=== PATIENT | male | born 1955 | race Caucasian/White ===

== ENCOUNTER 2020-01-15 00:37 | Day surgery (SDC) | payer OTHER, SELFPAY ==
[2020-01-09 14:07] VITALS: BMI 24.5
[2020-01-15 07:48] VITALS: BP 121/78; PULSE 65; RESP 16; TEMP 36.1; O2SAT 100; BMI 25.4
--- NOTE | 2020-01-15 08:06 | P.PNAN_ITS ---
Anes - Initial Pre Proc Eval Procedure: Operation Date: 01/15/20 08:30 Proposed Procedures p Screening Colonoscopy - Ambrocio Pena MD Date/Time: 01/15/20 08:06 Surgeon: Ambrocio Pena MD Pre Op Diagnosis: neoplasm screening Patient Data Age: 64 Gender: M Height: 5 ft 11 in Weight: 82.6 kg Last Vital Signs Temp 96.9 F L 01/15/20 07:48 Pulse 65 01/15/20 07:48 Resp 16 01/15/20 07:48 BP 121/78 01/15/20 07:48 Pulse Ox 100 01/15/20 07:48 Allergies Allergy/AdvReac Type Severity Reaction Status Date / Time No Known Allergies Allergy Verified 01/15/20 07:47 Home Medications Medication Instructions Recorded Confirmed Type tamsulosin 0.4 mg capsule 0.4 mg PO DAILY 10/14/19 01/15/20 History Patient hx anesthesia problems: none Family hx anesthesia problems: none [facility] Past Medical History Medical History (Updated 10/14/19 @ 22:07 by Mackenzie Xie MD) FH: CAD (coronary artery disease) FH: diabetes mellitus Lumbar radiculopathy Prostatic hypertrophy Sensory neuropathy Social History Social History Smoking status: Never smoker Second hand tobacco smoke exposure: No Alcohol intake: never Anes - Eval Final PreProcedure Day of Procedure 01/15/20 08:06 Patient weight: normal Heart: regular rate and rhythm Lungs: clear to auscultation Airway: Mallampati scale class II Neurological: alert and oriented Last oral intake: >/= 8 hours ASA classification: II Emergent: no Anesthetic plan: proceed Anesthesia type and monitoring: general GIVS and standard monitoring Informed Consent: The patient's anesthetic plan and its attendant risks and benefits were discussed with the patient/family/POA. Questions were solicited and answers provided to the satisfaction of the patient/family/POA.
[2020-01-15] MEDS: LACTATED RINGERS 1,000 ML 150 ML IV CONT (08:09)
--- NOTE | 2020-01-15 08:37 | WPDGICN ---
Assessment and Plan Additional Plan This is a 64-year-old white male patient seen in evaluation at the request of Dr. Mackenzie Xie. Patient's last colonoscopy 5 years ago he was found to have an adenomatous colon polyp. His current weight appetite bowel movements are normal. He denies any abdominal pain. He denies blood in his stools. Family history is significant his mother had colon cancer. Past medical history noncontributory. Current medications include tamsulosin. No known medical allergies. Physical exam reveals vital signs stable. HEENT exam unremarkable. Lungs are clear to auscultation and percussion. Heart is without murmur or extra sounds. Abdominal exam bowel sounds are present soft nontender with no hepatosplenomegaly. Digital external rectal exam normal. Impression 1. Personal history of colon polyps. 2. Family history of colon cancer in mother. Plan is for colonoscopy now and at 5 year intervals in the future. GI Consult Note Consult date/time: 01/15/20 08:37 HPI: Manjeet Gutierrez is a 64 year old male [facility]LY [facility] Past Medical History Medical History (Updated 10/14/19 @ 22:07 by Mackenzie Xie MD) FH: CAD (coronary artery disease) FH: diabetes mellitus Lumbar radiculopathy Prostatic hypertrophy Sensory neuropathy Social History Social History Smoking status: Never smoker Second hand tobacco smoke exposure: No Alcohol intake: never Meds Home Medications and Allergies Home Medications Medication Instructions Recorded Confirmed Type tamsulosin 0.4 mg capsule 0.4 mg PO DAILY 10/14/19 01/15/20 History Allergies Allergy/AdvReac Type Severity Reaction Status Date / Time No Known Allergies Allergy Verified 01/15/20 07:47 Vital Signs Vital Signs - 24 hr 01/15/20 07:48 Temperature 36.1 C L Pulse Rate 65 Respiratory Rate 16 Blood Pressure 121/78 Pulse Oximetry 100
[2020-01-15] MEDS: SIMETHICONE ORAL SUSPENSION 20 MG/0.3 ML 30 ML BOTTLE 0.6 ML IRRIGATION (08:45)
[2020-01-15 08:56] VITALS: BP 96/66; PULSE 77; RESP 19; O2SAT 95
[2020-01-15 09:06] VITALS: BP 101/68; PULSE 68; RESP 19; O2SAT 96
== END 2020-01-15 09:45 | disposition home or self-care (01) ==
PROVIDERS: PCP Family Medicine; Visit Provider Internal Medicine Gastroenterology
PROC: 0DJD8ZZ Inspection of Lower Intestinal Tract, Via Natural or Artificial Opening Endoscopic (ICD-10-PCS; CPT 45378; principal; 2020-01-15 08:30)
DX: Z12.11 Encounter for screening for malignant neoplasm of colon (principal); K57.30 Diverticulosis of large intestine without perforation or abscess without bleeding; K64.8 Other hemorrhoids; Z86.010 Personal history of colon polyps; Z80.0 Family history of malignant neoplasm of digestive organs
CPT/HCPCS: 45378; J2704; J7120

== ENCOUNTER 2024-01-09 09:36 | Outpatient (CLI) | payer MEDICARE, SELFPAY ==
--- NOTE | 2024-01-09 10:26 | ECG_ITS ---
Measurements Intervals [place] Rate: 57 P: 72 FL: 185 QRS: -26 QRSD: 98 T: 39 QT: 388 QTc: 379 Interpretive Statements SINUS BRADYCARDIA POSSIBLE LEFT ATRIAL ENLARGEMENT [-0.1mV P WAVE IN V1/V2] BORDERLINE LEFT AXIS DEVIATION [QRS AXIS < -20] BORDERLINE ECG NO PREVIOUS ECG AVAILABLE FOR COMPARISON Electronically Signed On 01-09-2024 18:23:35 [employer] by Kb Whitt M.D.
[2024-01-09 11:02] LABS: Basophils Absolute Auto 0.1 K/mm3 (0.0-0.1); Basophils Percent Auto 1.1 % (0.2-1.2); Eosinophils Absolute Auto 0.3 K/mm3 (0-0.3); Eosinophils Percent Auto 5.2 % (0-4.4); Hematocrit 46.5 % (42.0-52.0); Hemoglobin 15.5 g/dL (14.0-18.0); Immature Granulocyte Absolute 0.03 K/mm3 (0.00-0.031); Immature Granulocyte Percent A 0.5 % (0-0.5); Lymphocytes Absolute Auto 2.03 K/mm3 (0.9-3.2); Lymphocytes Percent Auto 31.7 % (18.3-44.2); Mean Corpuscular HGB Conc 33.3 g/dl (32-36); Mean Corpuscular Hemoglobin 31.5 pg (26-34); Mean Corpuscular Volume 94.5 fl (80-100); Mean Platelet Volume 11.1 fl (7.4-10.4); Monocytes Absolute Auto 0.7 K/mm3 (0.1-0.6); Monocytes Percent Auto 10.8 % (2.6-8.5); Neutrophils Absolute Auto 3.3 K/mm3 (1.3-6.7); Neutrophils Percent Auto 50.7 % (45.5-73.1); Platelet Count Result 214 k/mm3 (150-375); Red Blood Count 4.92 M/mm3 (4.6-6.20); Red Cell Distribution Width 13.5 % (11.5-14.5); White Blood Count 6.4 K/mm3 (4.5-10.0)
[2024-01-09 11:09] LABS: Alanine Aminotransferase 31 U/L (6-50); Albumin Level 4.3 g/dL (3.5-5.1); Alkaline Phosphatase 104 U/L (38-126); Anion Gap 5 mmol/L (8-16); Aspartate Amino Transferase 37 U/L (17-59); Bilirubin,Total 0.7 mg/dL (0.2-1.3); Blood Urea Nitrogen 12 mg/dL (9-20); Calcium 9.5 mg/dL (8.4-10.2); Carbon Dioxide 25 mmol/L (22-30); Chloride 107 mmol/L (98-107); Estimated Glomerular Filt Rate > 60; Glucose 109 mg/dL (65-110); Potassium 4.4 mmol/L (3.4-5.0); Sodium 137 mmol/L (137-145)
[2024-01-09 11:15] LABS: INR 0.9; Prothrombin Time 12.5 Seconds (11.1-14.7)
[2024-01-09 11:16] LABS: Partial Thromboplastin Time 27.8 SECONDS (22.3-36.8)
== END 2024-01-09 09:37 | disposition home or self-care (01) ==
LOC: ANHSURGERY 09:46
PROVIDERS: PCP Family Medicine; Visit Provider Urology
DX: Z01.818 Encounter for other preprocedural examination (principal); C61 Malignant neoplasm of prostate; R93.1 Abnormal findings on diagnostic imaging of heart and coronary circulation
CPT/HCPCS: 36415; 80053; 85025; 85610; 85730; 86850; 86900; 86901; 87086; 93005

== ENCOUNTER 2024-01-17 01:07 | Day surgery (SDC) | payer MEDICARE, SELFPAY ==
[2024-01-09 09:46] VITALS: BP 142/80; PULSE 66; RESP 20; TEMP 36.9; O2SAT 97; BMI 28.1
--- NOTE | 2024-01-09 09:46 | PC.NURSE ---
PRE-OP INSTRUCTIONS, PLEASE READ CAREFULLY Report to the Outpatient Waiting Room, entrance under the green pavilion located off [facility], at time _0600_ on date _01/17/24_. Planned Procedure Time: _0730_. PACK A SMALL OVERNIGHT BAG AND LEAVE IN THE CAR Time changes happen often and if your time is changed the preop area will call you the afternoon before. - You and your visitor will be asked to self-screen and do not enter if you have any COVID symptoms. - A mask is optional within the hospital at this time. -VISITING HOURS 8AM-8PM Patients may have clear liquids (water, carbonated beverages, clear teas, apple juice) until 3 hours prior to surgery (0430 AM) with a maximum of 20 ounces. - No food from midnight until time of surgery Take the following medications with a SIP of water the morning of surgery: _NONE_ DO NOT STOP ANY OF YOUR OTHER PRESCRIPTION MEDICATIONS PRIOR TO SURGERY ?EXCEPT THE FOLLOWING Medications to discontinue per DR. ESCALONA - _MULTIVITAMIN & SUPPLEMENTS 7 DAYS PRIOR TO SURGERY, Date to take last dose 01/08/24 (PER PATIENT)_ Please no make-up, nail romansh, hairspray, perfume, deodorant, or body powder the day of surgery. No jewelry (including any body piercings) or valuables the day of surgery, leave them at home. Please take a shower or bath the night before, or the morning of, surgery with an antibacterial soap. Wear comfortable, loose fitting clothing. - Jewelry must be removed prior to entering the operating room. Rings and piercings that are not removed may be cut off. - The hospital will not accept responsibility for valuables. - Please leave all valuables, including medications, at home the day of surgery. If you are going home after surgery, a licensed oil transport driver must drive you home. - NO public transportation without another adult if you receive anesthesia. - We recommend that an adult stay with you for 24 hours following discharge. - We also recommend that you do not drive, make important decision, drink alcoholic beverages, or take any drugs that were not prescribed by your health care provider for at least 24 hours after your discharge time. For Pediatric surgeries, we recommend two adults accompany the child home. Follow any additional instructions given to you from your surgeon. If you or anyone in your household have experienced Covid symptoms in the past week, please notify your surgeon or the nurse liaison at the phone number below for possible testing. Instructions given to _PATIENT_and asked if any additional questions and then verbalized understanding. Patient advised to call surgeon office or pre surgery nurse liaison [phone] if any additional questions.
[2024-01-17] VITALS (10 sets, daily range): BP systolic 112–162; BP diastolic 75–98; PULSE 54–79; RESP 14–20; TEMP 36.2–36.4; O2SAT 93–100; BMI 27.3
[2024-01-17] MEDS: LACTATED RINGERS 1,000 ML 30 ML IV CONT ×3 (06:30→11:15)
--- NOTE | 2024-01-17 06:39 | WPDHPUPDATE1 ---
History and Physical Update Update Date/Time: 01/17/24 06:39 History and Physical has been reviewed, including an updated exam of the patient. There are NO changes in the patient's condition. Risks, benefits, and alternatives have been discussed and questions answered. Patient agrees to proceed with procedure. Proceed with robotic assist nerve sparing prostatectomy with possible plnd
--- NOTE | 2024-01-17 07:16 | WPDANESEPPF ---
Anes - Initial Pre Proc Eval Procedure: Operation Date: 01/17/24 07:30 Proposed Procedures p Robotic Assisted Nerve Sparing Prostatectomy with Possible Pelvic Lymph Node Dissection - Joo Mckeon MD Date/Time: 01/17/24 07:16 Surgeon: Joo Mckeon MD Pre Op Diagnosis: prostate CA Patient Data Age: 68 Gender: M Height: 1.8 m Weight: 88.8 kg Last Vital Signs Temp 98.4 F 01/09/24 09:46 Pulse 66 01/09/24 09:46 Resp 20 01/09/24 09:46 BP 142/80 H 01/09/24 09:46 Pulse Ox 97 01/09/24 09:46 O2 Del Method Room Air 01/09/24 09:46 Allergies Allergy/AdvReac Type Severity Reaction Status Date / Time No Known Allergies Allergy Verified 01/17/24 06:15 Home Medications Medication Instructions Recorded Confirmed Type tamsulosin 0.4 mg capsule (Flomax) 0.4 mg PO DAILY 10/14/19 01/09/24 History omega 3-nht-hbo-fish oil 1,200 mg 1 cap PO DAILY 03/21/23 01/17/24 History (144 mg-216 mg) capsule (Fish Oil) saw palmetto 450 mg capsule 450 mg PO BID 03/21/23 01/17/24 History multivitamin 1 tablet PO DAILY 03/22/23 01/17/24 History Patient hx anesthesia problems: none Family hx anesthesia problems: none Results Review: All pre-operative results and documents have been reviewed as part of the pre-operative evaluation. FORMERLY [facility] Past Medical History Medical History (Updated 05/05/23 @ 21:30 by Mackenzie Xie MD) Erectile dysfunction FH: CAD (coronary artery disease) FH: diabetes mellitus Lumbar radiculopathy Normal colonoscopy (~2019) Prostatic hypertrophy Sensory neuropathy Surgical History Surgical History History of hernia repair Family History Family History Sibling Family history of arthritis Family history of diabetes mellitus in first degree relative Diabetes mellitus Father Acute myocardial infarction Hypertension Mother Carcinoma of colon Grandparent Diabetes mellitus Other Family history of malignant neoplasm Social History Social History (Updated 05/05/23 @ 09:06 by AYANNA Moon Smoking status: Never smoker Second hand tobacco smoke exposure: No Alcohol intake: current Drinks per week: 12 Alcohol use details: BEER Substance use: never Substance use type: does not use Lack of Transportation: No Lack of Food: Never True Current Housing: I Have Housing Concerned About Future Housing: No Difficulty Paying Gas/Electric Bills: No Difficulty Paying for Meds: No Currently Unemployed: No Education: Trade/Vocational Certificate Difficulty w/ Childcare or Family Care: No Living arrangements: with family Occupation/Education: retired Gender identity (if verbalized by the patient): Male Sexual Orientation (if Verbalized by the Patient): Straight or Heterosexual Spiritual care concerns: No Agree to blood products: Yes Anes - Eval Final PreProcedure Day of Procedure 01/17/24 07:16 Patient weight: normal Heart: regular rate and rhythm Lungs: clear to auscultation Airway: Mallampati scale class II Neurological: alert and oriented Last oral intake: >/= 8 hours ASA classification: III Emergent: no Anesthetic plan: proceed Anesthesia type and monitoring: general ETT and standard monitoring Results Review: All pre-operative results and documents have been reviewed as part of the pre-operative evaluation. Informed Consent: The patient's anesthetic plan and its attendant risks and benefits were discussed with the patient/family/POA. Questions were solicited and answers provided to the satisfaction of the patient/family/POA.
[2024-01-17] MEDS: ceFAZolin 2 GM/D5W 50 ML 2 GM/50 ML BAG IVPB (07:26)
[2024-01-17] MEDS: BUPivacaine HCL 0.5% PF 30 ML VIAL INFILTRATE (08:10)
--- NOTE | 2024-01-17 09:33 | W.PM.PROC2 ---
Procedure Note - Detailed Date of Procedure 01/17/24 Pre-op Diagnosis prostate CA Post-op Diagnosis Same Procedure Performed Attempted robotic assisted nerve-sparing prostatectomy with extensive adhesiolysis Surgeon Joo Mckeon MD Anesthesia General Description of Procedure Patient was taken the operative suite correctly identified. Once anesthesia was obtained was placed in low-lying dorsal lithotomy position and prepped draped usual sterile fashion. Eighteen Portuguese Zepeda was inserted with 20 cc in the balloon. Supraumbilical incision was then made carried down to the rectus fascia. Veress needle was inserted and the abdomen was insufflated 15 mmHg pressure. Camera port was placed under direct vision. Working ports were then placed in appropriate locations. Placed was placed in steep Trendelenburg and the robot was docked. Attention was then given to the console. Patient was noted to have an extensive amount of adhesions of his colon to the cul-de-sac as well as to the left lateral umbilical ligament. This was carefully taken down. It was then noted that he had a very lax abdominal wall anteriorly which sag into the cul-de-sac posteriorly. It was a very deep cul-de-sac. I made the standard incision about 1 cm above the rectal wall. I was never able to adequately identify the vas or seminal vesicles. It was very vascular in this area for some reason. I then attempted to identify the vas coming from the inguinal canals. This also was unsuccessful in order to trace it down. Given that he had only a Cheryl 6 carcinoma with a very low prolaris risk factor, I made the decision to terminate the procedure. The robot was undocked. Midline incision was closed using an 0 Vicryl suture. Subcuticular stitches were placed. Patient was taken recovery stable condition. The Zepeda catheter will be removed in the recovery room for a voiding trial. This completes dictation. Please send a copy of this op note to my office Estimated Blood Loss 25 Drains No Packing No Pathology None sent Complications No immediate complications Condition Stable Disposition PACU
[2024-01-17] MEDS: fentaNYL CITRATE INJ (*CRX) 100 MCG/2 ML VIAL 25 MCG IV PUSH ×4 (10:05→10:15)
[2024-01-17] MEDS: oxyCODONE HCL (*CRX) 5 MG TAB IR PO (11:08)
--- NOTE | 2024-01-17 11:21 | SUR.PHASEII ---
1130 - pt voided, then bladder scanned with 0 mls in bladder
--- NOTE | 2024-01-17 12:28 | SUR.PHASEII ---
126 - dr. whitehead in room speaking with patient and patient's
== END 2024-01-17 12:45 | disposition home or self-care (01) ==
PROVIDERS: PCP Family Medicine; Visit Provider Urology
PROC: 0VT04ZZ Resection of Prostate, Percutaneous Endoscopic Approach (ICD-10-PCS; CPT 55867; principal; 2024-01-17 07:30)
DX: C61 Malignant neoplasm of prostate (principal); Z53.8 Procedure and treatment not carried out for other reasons
CPT/HCPCS: 55866; S2900; A9270; J0690; J1100; J1170; J2250; J2371; J2405; J2704; J3010; J7030; J7120

== ENCOUNTER 2025-08-23 01:44 | Day surgery (SDC) | payer MEDICARE, SELFPAY ==
[2025-08-14 15:05] VITALS: BMI 25.7
--- OUTSIDE RECORDS SUMMARY | 2025-08-23 01:48 | XMS_ITS | Clinical Summary ---
Author Organization [facility] Address [address] [place] [id number] Care Team Providers Care Marketing Assistant Retail Division Name Role Phone Mackenzie Xie MD Primary Care Provider Social History Tobacco Use Types Packs/Day Years Used Date Smoking Tobacco: Never Assessed Sex and Gender Information Value Date Recorded Sex Assigned at Not on file Legal Sex Male 10:45 AM [employer] Gender Identity Not on file Sexual Orientation Not on file Plan of Treatment Health Maintenance Due Date Last Done Comments Colorectal Cancer Screening Colonoscopy (10 Years) 1955 Hepatitis C 1973 DTaP, Tdap and Td Vaccines ( 1 - Tdap) 1974 Pneumococcal Vaccine: 50+ Ye ars (1 of 1 - PCV) 2005 Zoster Vaccines (1 of 2) 2005 Annual Medicare Wellness Visit 2020 COVID-19 Vaccine (1 - 2023-2 5 season) 2025 Influenza Adult (#1) 2025 RSV Immunization or 60+ Years (1 - 1-dose 75+ series) 2030 Meningococcal B Vaccine Aged Out No l onger eligible based on patient's age to complete this topic Meningococcal Vaccine Aged Out No sal kendy eligible based on patient's age to complete this topic RSV Immunizations Under 20 Months Aged Out No longer eligible based on patient's age to complete this topic [place] [address] [place] [id number] MEDICARE [facility] Care Teams Marketing Assistant Retail Division Relationship Specialty Start Date End Date Mackenzie Xie MD PCP - General FAMILY PRACTICE 01/14/21
[2025-08-23 08:14] VITALS: BP 126/86; PULSE 64; RESP 18; TEMP 36.1; O2SAT 99; BMI 26.4
[2025-08-23] MEDS: LACTATED RINGERS 1,000 ML 150 ML IV CONT (08:25)
--- NOTE | 2025-08-23 09:07 | WPDANESEPPF ---
Anes - Initial Pre Proc Eval Procedure: Operation Date: 08/23/25 09:30 Proposed Procedures p Screening Colonoscopy - Pedro Coppola MD Date/Time: 08/23/25 09:07 Surgeon: Pedro Coppola MD Pre Op Diagnosis: Personal history of colon polyps, unspecified Patient Data Age: 70 Gender: M Height: 1.8 m Weight: 86.2 kg Last Vital Signs Temp 36.1 C L 08/23/25 08:14 Pulse 64 08/23/25 08:14 Resp 18 08/23/25 08:14 BP 126/86 08/23/25 08:14 Pulse Ox 99 08/23/25 08:14 O2 Del Method Room Air 08/23/25 08:14 Allergies Allergy/AdvReac Type Severity Reaction Status Date / Time No Known Allergies Allergy Verified 08/23/25 08:13 Home Medications ?Medication ?Instructions ?Recorded ?Confirmed ?Type tamsulosin 0.4 mg capsule (Flomax) 0.4 mg PO DAILY 10/14/19 08/23/25 History omega 3-wpv-lyq-fish oil 1,200 mg 1 cap PO DAILY 03/21/23 08/23/25 History (144 mg-216 mg) capsule (Fish Oil) saw palmetto 450 mg capsule 450 mg PO BID 03/21/23 08/23/25 History multivitamin 1 tablet PO DAILY 03/22/23 08/23/25 History Patient hx anesthesia problems: none Family hx anesthesia problems: none Results Review: All pre-operative results and documents have been reviewed as part of the pre-operative evaluation. ON LICENSE OF [facility] Past Medical History Medical History Foot pain, left Prostate cancer Erectile dysfunction Normal colonoscopy (~2019) FH: CAD (coronary artery disease) FH: diabetes mellitus Lumbar radiculopathy Prostatic hypertrophy Sensory neuropathy Surgical History Surgical History History of hernia repair Family History Family History Sibling Family history of arthritis Family history of diabetes mellitus in first degree relative Diabetes mellitus Father Acute myocardial infarction Hypertension Mother Carcinoma of colon Grandparent Diabetes mellitus Other Family history of malignant neoplasm Social History Social History Smoking status: Never smoker Second hand tobacco smoke exposure: No Alcohol intake: current Drinks per week: 12 Alcohol use details: BEER Substance use: never Substance use type: does not use Lack of Transportation: No Lack of Food: Never True Current Housing: I Have Housing Concerned About Future Housing: No Difficulty Paying Gas/Electric Bills: No Difficulty Paying for Meds: No Currently Unemployed: No Education: Trade/Vocational Certificate Difficulty w/ Childcare or Family Care: No Living arrangements: with family Occupation/Education: retired Gender identity (if verbalized by the patient): Male Sexual Orientation (if Verbalized by the Patient): Straight or Heterosexual Spiritual care concerns: No Agree to blood products: Yes Anes - Eval Final PreProcedure Day of Procedure 08/23/25 09:07 Patient weight: overweight Heart: regular rate and rhythm Lungs: clear to auscultation Airway: Mallampati scale class II Neurological: alert and oriented Last oral intake: >/= 8 hours ASA classification: III Emergent: no Anesthetic plan: proceed Anesthesia type and monitoring: general GIVS and standard monitoring Results Review: All pre-operative results and documents have been reviewed as part of the pre-operative evaluation. Informed Consent: The patient's anesthetic plan and its attendant risks and benefits were discussed with the patient/family/POA. Questions were solicited and answers provided to the satisfaction of the patient/family/POA.
--- NOTE | 2025-08-23 09:10 | PM.HPGS ---
History of Present Illness History of Present Illness Consent: Risks, benefits, and alternatives have been discussed and questions answered. Patient agrees to proceed with procedure. Chief complaint: Personal history of colon polyps, unspecified Narrative: Manjeet Gutierrez is a 70 year old male with last colonoscopy 2019, mother had colon cancer Review of Systems Review of Systems: All systems reviewed & are unremarkable except as noted in HPI and below PMFSH Past Medical History Medical History (Updated 08/23/25 @ 09:11 by Pedro Coppola MD) Family history of colon cancer Foot pain, left Prostate cancer Erectile dysfunction Normal colonoscopy (~2019) FH: CAD (coronary artery disease) FH: diabetes mellitus Lumbar radiculopathy Prostatic hypertrophy Sensory neuropathy Surgical History Surgical History History of hernia repair Family History Family History Sibling Family history of arthritis Family history of diabetes mellitus in first degree relative Diabetes mellitus Father Acute myocardial infarction Hypertension Mother Carcinoma of colon Grandparent Diabetes mellitus Other Family history of malignant neoplasm Social History Social History Smoking status: Never smoker Second hand tobacco smoke exposure: No Alcohol intake: current Drinks per week: 12 Alcohol use details: BEER Substance use: never Substance use type: does not use Lack of Transportation: No Lack of Food: Never True Current Housing: I Have Housing Concerned About Future Housing: No Difficulty Paying Gas/Electric Bills: No Difficulty Paying for Meds: No Currently Unemployed: No Education: Trade/Vocational Certificate Difficulty w/ Childcare or Family Care: No Living arrangements: with family Occupation/Education: retired Gender identity (if verbalized by the patient): Male Sexual Orientation (if Verbalized by the Patient): Straight or Heterosexual Spiritual care concerns: No Agree to blood products: Yes Meds Home Medications and Allergies Home Medications ?Medication ?Instructions ?Recorded ?Confirmed ?Type tamsulosin 0.4 mg capsule (Flomax) 0.4 mg PO DAILY 10/14/19 08/23/25 History omega 2-ubc-xng-fish oil 1,200 mg 1 cap PO DAILY 03/21/23 08/23/25 History (144 mg-216 mg) capsule (Fish Oil) saw palmetto 450 mg capsule 450 mg PO BID 03/21/23 08/23/25 History multivitamin 1 tablet PO DAILY 03/22/23 08/23/25 History Allergies Allergy/AdvReac Type Severity Reaction Status Date / Time No Known Allergies Allergy Verified 08/23/25 08:13 Vital Signs Vital Signs - 24 hr 08/23/25 08:14 Temperature 97 F L Pulse Rate 64 Respiratory Rate 18 Blood Pressure 126/86 Pulse Oximetry 99 Oxygen Delivery Room Air Exam Const: General: comfortable and no acute distress HENMT: Face/Nose/Sinus: Normal nares present Eyes: General: appearance normal, both eyes and all related structures Resp: Auscultation: clear to auscultation bilaterally Cardio: Rate: regular rate Rhythm: regular rhythm GI: Inspection: non-distended GI Palp: Yes Soft to palpation Skin: General skin exam: normal color Extrem: General: normal to inspection Psych: Mental Status: mental status grossly normal Assessment and Plan Assessment and plan (1) Family history of colon cancer: Code(s): Z80.0 - Family history of malignant neoplasm of digestive organs Status: Acute Assessment and Plan: colonoscopy
--- NOTE | 2025-08-23 09:18 | S_PTH ---
PATIENT: Manjeet Gutierrez LOC: [facility]#:[id number] AGE/SX: 70/M ROOM: RE08/23/[address]: Pedro Coppola MD : 1955 BED: DIS: 08/23/2025 SPEC #: [id number] RECD: 08/23/25 11:24 STATUS: LOS REQ #: [id number] NEW: 08/23/25 09:[address]: Pedro Coppola DEPT: [facility] Surgical RECD BY: Patric Taylor ENTERED: 08/23/25 11:24 SP TYPE: Surgical OTHR DR: Mackenzie Xie, Tissues: A - Colon Polypectomy Procedures: Hematoxylin and Eosin Stain Gross and Microscopic Level 4
[2025-08-23 09:22] VITALS: BP 97/67; PULSE 68; RESP 19; O2SAT 96
[2025-08-23 09:32] VITALS: BP 105/73; PULSE 62; RESP 15; O2SAT 97
[2025-08-23 09:42] VITALS: BP 107/64; PULSE 60; RESP 19; O2SAT 97
== END 2025-08-23 09:50 | disposition home or self-care (01) ==
PROVIDERS: PCP Family Medicine; Referring Provider Family Medicine; Visit Provider Internal Medicine Gastroenterology
PROC: 0DJD8ZZ Inspection of Lower Intestinal Tract, Via Natural or Artificial Opening Endoscopic (ICD-10-PCS; CPT 45378; principal; 2025-08-23 09:30)
DX: Z12.11 Encounter for screening for malignant neoplasm of colon (principal); K63.5 Polyp of colon; K64.8 Other hemorrhoids; K57.30 Diverticulosis of large intestine without perforation or abscess without bleeding; N52.9 Male erectile dysfunction, unspecified; G62.9 Polyneuropathy, unspecified; Z98.890 Other specified postprocedural states; Z85.46 Personal history of malignant neoplasm of prostate; Z80.0 Family history of malignant neoplasm of digestive organs; Z82.49 Family history of ischemic heart disease and other diseases of the circulatory system
CPT/HCPCS: 45380; 88305; J2704; J7120